=== PATIENT | female | born 1985 | race Caucasian/White ===

== ENCOUNTER 2025-04-17 13:26 | Outpatient (CLI) | payer BC | END 2025-04-17 13:27 | disposition home or self-care (01) | LOC: CSHULT 13:26 | PROVIDERS: ATTEND Student in an Organized Health Care Education/Training Program | DX: R60.0 Localized edema (principal) ==

== ENCOUNTER 2025-04-19 10:48 | Day surgery (SDC) | payer BC ==
[2025-04-19 10:52] VITALS: BMI 31.1
[2025-04-19] MEDS ORDERED: hydrALAZINE 20 MG/ML VIAL SLOW IVP PRN (11:27)
[2025-04-19] MEDS: Acetaminophen 500 MG TAB PO SCH (11:42)
[2025-04-19 11:58] LABS: #Basophils 0.03 10x3/uL (0.0-0.2); #Eosinophils 0.08 10x3/uL (0.0-0.5); #Monocytes 0.39 10x3/uL (0.0-1.1); #Neutrophils 5.63 10x3/uL (1.5-8.4); %Basophils 0.4 % (0.0-2.0); %Eosinophils 1.1 % (0.0-6.0); %Lymphocytes 18.8 % (18.0-47.0); %Monocytes 5.1 % (0.0-10.0); %Neutrophils 74.1 % (40.0-75.0); Hematocrit 35.4 % (34.9-44.5); Hemoglobin 12.2 g/dL (12.0-15.5); Mean Corpuscular Hemoglobin 29.8 pg (27.0-33.0); Mean Corpuscular Volume 86.6 fL (81.6-98.3); Platelet Count 179 10x3/uL (150-450); Red Blood Cell (RBC) Count 4.09 10x6/uL (3.90-5.03); White Blood Cell (WBC) Count 7.60 10x3/uL (3.5-10.5)
[2025-04-19] MEDS: diphenhydrAMINE 50 MG/ML VIAL IVP SCH (12:11)
[2025-04-19] MEDS: Metoclopramide HCl 10 MG (2 mL) VIAL IVP SCH (12:11)
[2025-04-19 12:13] LABS: Protein, Urine Random Quant Less than 10 mg/dL (1-14)
[2025-04-19 12:13] LABS: ALT (SGPT) 12 U/L (Less than 34); AST (SGOT) 19 U/L (11-34); Albumin 2.8 g/dL (3.1-4.5); Alkaline Phosphatase 99 U/L (40-110); Anion Gap 14 mmol/L (10-20); BUN (Urea Nitrogen) 6 mg/dL (7.0-18.7); Bilirubin, Total 0.4 mg/dL (0.3-1.2); Calc. Creatinine Clearance 193 mL/min (70-130); Calcium 9.1 mg/dL (7.8-10.44); Carbon Dioxide 21 mmol/L (22-29); Chloride 104 mmol/L (98-107); Globulin 3.3 g/dL (2.4-3.5); Glucose 160 mg/dL (70-105); Potassium 3.5 mmol/L (3.5-5.1); Sodium 135 mmol/L (136-145)
== END 2025-04-19 13:10 | disposition home or self-care (01) ==
LOC: CSHLD/OP 10:48
PROVIDERS: ATTEND Student in an Organized Health Care Education/Training Program
DX: O99.891 Other specified diseases and conditions complicating pregnancy (principal); R03.0 Elevated blood-pressure reading, without diagnosis of hypertension; O47.03 False labor before 37 completed weeks of gestation, third trimester; O09.523 Supervision of elderly multigravida, third trimester; Z3A.34 34 weeks gestation of pregnancy; Z79.899 Other long term (current) drug therapy
CPT/HCPCS: 36415; 80053; 82570; 84156; 85025; J1200; J2765

== ENCOUNTER 2025-05-09 09:48 | Inpatient (IN) | payer BC ==
[2025-05-09] MEDS ORDERED: Oxytocin 30 units/NS 500 ML 500 ML IV SCH ×2 (18:48)
[2025-05-09] MEDS ORDERED: Acetaminophen 500 MG TAB PO PRN (18:48)
[2025-05-09] MEDS ORDERED: hydrALAZINE 20 MG/ML VIAL SLOW IVP PRN (18:48)
[2025-05-09] MEDS ORDERED: Tranexamic Acid 1,000 MG/10 ML VIAL IVP PRN (18:48)
[2025-05-09] MEDS ORDERED: Lidocaine 1% (PF) 30 ML VIAL SC PRN (18:48)
[2025-05-09] MEDS ORDERED: HYDROcodone/Acetaminophen 5/325 mg Tablet PO PRN (18:48)
[2025-05-09] MEDS ORDERED: Ondansetron PF 4 MG/2 ML Vial IVP PRN (18:48)
[2025-05-09] MEDS ORDERED: Carboprost 250 MCG/ML AMP IM PRN (18:48)
[2025-05-09] MEDS ORDERED: Diphenoxylate HCl/Atropine Tablet PO PRN (18:48)
[2025-05-09] MEDS ORDERED: Ibuprofen 800 MG TAB PO PRN (18:48)
[2025-05-09 19:30] LABS: Hematocrit 38.7 % (34.9-44.5); Hemoglobin 13.3 g/dL (12.0-15.5); Mean Corpuscular Hemoglobin 29.6 pg (27.0-33.0); Mean Corpuscular Volume 86.0 fL (81.6-98.3); Platelet Count 197 10x3/uL (150-450); Red Blood Cell (RBC) Count 4.50 10x6/uL (3.90-5.03); White Blood Cell (WBC) Count 7.88 10x3/uL (3.5-10.5)
[2025-05-09 19:39] VITALS: BMI 32.1
[2025-05-09 19:48] LABS: ALT (SGPT) 18 U/L (Less than 34); AST (SGOT) 32 U/L (11-34); Albumin 3.2 g/dL (3.1-4.5); Alkaline Phosphatase 139 U/L (40-110); Anion Gap 15 mmol/L (10-20); BUN (Urea Nitrogen) 9 mg/dL (7.0-18.7); Bilirubin, Total 0.4 mg/dL (0.3-1.2); Calc. Creatinine Clearance 163 mL/min (70-130); Calcium 9.8 mg/dL (7.8-10.44); Carbon Dioxide 22 mmol/L (22-29); Chloride 103 mmol/L (98-107); Globulin 3.8 g/dL (2.4-3.5); Glucose 94 mg/dL (70-105); Potassium 4.0 mmol/L (3.5-5.1); Sodium 136 mmol/L (136-145)
[2025-05-09 20:04] LABS: Syphilis Antibody Index 0.03 S/CO (<1.00 Non-Reactive)
[2025-05-09 20:05] LABS: Hep B Surf Ag - L&D Non-Reactive S/CO (NonReactive)
[2025-05-10] MEDS: fentaNYL/Ropivacaine Epidural 100 ML ONE (09:09)
[2025-05-10] MEDS ORDERED: Acetaminophen 325 MG TAB PO PRN (10:43)
[2025-05-10] MEDS ORDERED: diphenhydrAMINE 50 MG/ML VIAL IVP PRN (10:43)
[2025-05-10] MEDS ORDERED: Ondansetron PF 4 MG/2 ML Vial IVP PRN ×2 (10:43→12:27)
[2025-05-10] MEDS ORDERED: fentaNYL 2 mcg/Ropivacaine 0.2% Epidural 100 ML CADD EPIDURAL SCH (10:45)
[2025-05-10] MEDS ORDERED: Communication Order-Pharmacy FS SCH (10:45)
[2025-05-10] MEDS ORDERED: Benzocaine-Menthol 82.5 ML CAN TOP PRN (12:27)
[2025-05-10] MEDS ORDERED: Milk Of Magnesia 30 ML UDCUP PO PRN (12:27)
[2025-05-10] MEDS ORDERED: hydrALAZINE 20 MG/ML VIAL SLOW IVP PRN (12:27)
[2025-05-10] MEDS ORDERED: Bisacodyl 10 MG SUPP PR PRN (12:27)
[2025-05-10] MEDS ORDERED: HYDROcodone/Acetaminophen 5/325 mg Tablet PO PRN ×2 (12:27)
[2025-05-10] MEDS ORDERED: Lanolin Ointment 7 GM TUBE TOP PRN (12:27)
[2025-05-10] MEDS ORDERED: Preparation H Ointment 28 GM TUBE PR PRN (12:27)
[2025-05-10] MEDS ORDERED: diphenhydrAMINE 25 MG CAP PO PRN (12:27)
[2025-05-10] MEDS: Ferrous Sulfate 325 MG TAB PO SCH (14:04)
[2025-05-10] MEDS: Ibuprofen 800 MG TAB PO SCH (14:16)
[2025-05-10] MEDS ORDERED: Bupivacaine 0.25% HCL 30 ML VIAL ONE (19:35)
[2025-05-11 11:53] VITALS: BP 134/85; TEMP 97.8
== END 2025-05-11 15:00 | disposition home or self-care (01) | DRG 807 ==
LOC: CSHLD 18:10 → CSHPP 05-10 12:13
PROVIDERS: ADMIT Student in an Organized Health Care Education/Training Program; ATTEND Student in an Organized Health Care Education/Training Program
PROC: 10E0XZZ Delivery of Products of Conception, External Approach (ICD-10-PCS; principal; 2025-05-10)
PROC: 3E0DXGC Introduction of Other Therapeutic Substance into Mouth and Pharynx, External Approach (ICD-10-PCS; principal; 2025-05-10)
PROC: 4A1HXCZ Monitoring of Products of Conception, Cardiac Rate, External Approach (ICD-10-PCS; principal; 2025-05-10)
DX: O10.92 Unspecified pre-existing hypertension complicating childbirth (principal); Z37.0 Single live birth; Z3A.37 37 weeks gestation of pregnancy; Z79.899 Other long term (current) drug therapy; Z79.82 Long term (current) use of aspirin
CPT/HCPCS: 36415; 80053; 85027; 86780; 86850; 86900; 86901; 87340; J0665; J7120